=== PATIENT | female | born 1985 | race American Indian/Alaskan Native ===

== ENCOUNTER 2017-08-30 01:25 | Emergency (ER) | payer MEDICAID ==
[2017-08-30] MEDS ORDERED: ZOFRAN ODT PO ONE ×2 (04:35)
[2017-08-30 05:24] LABS: Basophils % (Auto) 0.3 % (0.0-1.8); Eosinophils % (Auto) 1.6 % (0.0-4.3); Hematocrit 40.3 % (30.3-42.9); Hemoglobin 13.2 gm/dl (10.1-14.3); Mean Corpuscular HGB Conc 33 % (30-34); Mean Corpuscular Hemoglobin 29 pg (28-32); Mean Corpuscular Volume 89 fl (79-97); Platelet Count 232 K/mm3 (140-440); Red Blood Count 4.55 M/mm3 (3.65-5.03); Red Cell Distribution Width 14.7 % (13.2-15.2); White Blood Count 6.8 K/mm3 (4.5-11.0)
[2017-08-30 05:36] LABS: Anion Gap 19 mmol/L; BUN/Creatinine Ratio 12; Blood Urea Nitrogen 7 mg/dL (7-17); Calcium 9.1 mg/dL (8.4-10.2); Carbon Dioxide 23 mmol/L (22-30); Chloride 99.4 mmol/L (98-107); Glucose 84 mg/dL (65-100); Potassium 4.4 mmol/L (3.6-5.0); Sodium 137 mmol/L (137-145)
[2017-08-30] MEDS ORDERED: ZOFRAN IV ONE (07:00)
[2017-08-30] MEDS ORDERED: ZOFRAN ONE (07:19)
[2017-08-30 08:01] LABS: Alanine Aminotransferase 12 units/L (7-56); Albumin 4.2 g/dL (3.9-5); Albumin/Globulin Ratio 1.6 %; Alkaline Phosphatase 54 units/L (35-129); Total Protein 6.8 g/dL (6.3-8.2)
[2017-08-30 08:05] LABS: Bilirubin,Direct < 0.2 mg/dL (0-0.2)
--- NOTE | 2017-08-30 08:50 | Ultrasound Report ---
ULTRASOUND OB LESS THAN 14 WEEKS FETUS ULTRASOUND OB TRANSVAGINAL HISTORY: Vomiting, pain. COMPARISON: None. TECHNIQUE: Transabdominal and transvaginal ultrasound with color doppler interrogation. FINDINGS: Uterus: 9.7 x 6.3 x 6.8 cm. No uterine fibroids are identified. Endometrium: An intrauterine is identified with heart rate measuring 153 beats per minute. [facility]-rump length measures 14.0 cm which correlates with a 7 week, 5 day . Right ovary: 3.9 x 1.9 x 3.0 cm. A 1.3 cm complex cyst is noted in the right ovary. Left ovary: 3.9 x 2.0 x 2.3 cm. No abnormality.. No pelvic fluid or mass is identified. Normal color doppler interrogation. IMPRESSION: Viable, single intrauterine dated at 7 weeks, 5 days. No acute abnormality is detected. 1.3 cm complex cyst in the right ovary.
[2017-08-30] MEDS ORDERED: NACL 0.9% 1000 ML 1,000 ML IV ONE (10:04)
[2017-08-30 12:15] VITALS: BP 104/60
--- NOTE | 2017-08-30 13:49 | Emergency Department Report ---
HPI - General Chief Complaint: Nausea/Vomiting/Diarrhea Time Seen by Provider: 08/30/17 10:03 - HPI HPI: The patient's 32-year-old EGA of 7 weeks, who presents for evaluation of nausea, vomiting, and abdominal pain. The patient reports constant severe nausea and multiple episodes of vomiting for the past week, exacerbated with eating or drinking, and associated with mild crampy epigastric abdominal pain also for the past week, worse with retching. The patient denies fever, chills, night sweats, diarrhea, blood in the stool, dark tarry stool, dysuria, hematuria , flank pain, genital discharge, vaginal bleeding, leg swelling, blurry vision, chest pain, dyspnea. ED Past Medical Hx - Past Medical History Previous Medical History?: Yes Hx Asthma: Yes - Surgical History Past Surgical History?: No - Social History Smoking Status: Never Smoker Substance Use Type: None - Medications Home Medications: Home Medications Medication Instructions Recorded Confirmed Last Taken Type Acetaminophen/Codeine [Tylenol 1 tab PO Q6H PRN #15 tab 11/28/13 Unknown Rx /Codeine # 3 tab] Methocarbamol [Robaxin TAB] 750 mg PO Q8H PRN #21 tablet 11/28/13 Unknown Rx Naproxen Sodium (Nf) [Anaprox DS 550 mg PO BID PRN #14 tablet 11/28/13 Unknown Rx TAB] Ondansetron [Zofran TAB] 4 mg PO Q8HR PRN #20 tablet 08/30/17 Unknown Rx Pnv No.95/Ferrous Fum/Folic AC 1 each PO QDAY #31 tablet 08/30/17 Unknown Rx [ Vitamin Tablet] ED Review of Systems ROS: Stated complaint: ABD PAIN W N/V Other details as noted in HPI Constitutional: denies: fever ENT: denies: throat or neck pain Respiratory: denies: cough, shortness of breath Cardiovascular: denies: chest pain Endocrine: denies unexplained weight loss or gain Gastrointestinal: reports abdominal pain, nausea Genitourinary: denies: dysuria Musculoskeletal: denies: leg swelling Skin: denies: rash Neurological: denies: headache Hematological/Lymphatic: denies: easy bleeding or easy bruising Psych: denies sadness or hopelessness Physical Exam - Physical Exam Vital Signs: Vital Signs 08/30/17 04:24 Temperature 98.1 F Pulse Rate 75 Respiratory 18 Rate Blood Pressure 121/57 O2 Sat by Pulse 98 Oximetry Physical Exam: General: well-nourished, well-developed, no acute distress Head: Normocephalic, atraumatic Eyes: normal sclera ENT: Mucous membranes are pale and dry Neck: No neck stiffness, no cervical adenopathy Respiratory: Breath sounds equal bilaterally, no wheezing, rales, or rhonchi Cardio: S1 and S2 present, no murmurs, rubs, gallops, capillary refill is delayed Abdomen: Normoactive bowel sounds, soft abdomen, epigastric tenderness, no rigidity, no guarding or rebound tenderness Chest WALL/Back: No tenderness to palpation of the chest wall, no CVA tenderness with percussion Musc: No pitting edema Skin: No rash Neuro: no facial drooping, normal speech Psych: Normal affect ED Course Vital Signs 08/30/17 04:24 Temperature 98.1 F Pulse Rate 75 Respiratory 18 Rate Blood Pressure 121/57 O2 Sat by Pulse 98 Oximetry ED Medical Decision Making - Lab Data Result diagrams: 08/30/17 05:00 08/30/17 05:00 - Medical Decision Making The patient was seen and examined by myself. The patient is placed on a electronic device monitor and continuous pulse ox. On initial evaluation, the patient was found to be in no distress. Evaluation orders are placed. IV access is established and the patient is given 1 L normal saline fluid bolus and Zofran for nausea. Lab results revealed elevated hCG, and otherwise were non- concerning including WBC, hemoglobin, hematocrit, electrolytes, renal function, and urinalysis. Also found with the pelvis reveals live intrauterine at 7 weeks with normal heart rate. The patient was reevaluated and reported that their symptoms were markedly improved. The patient is stable for discharge with outpatient follow-up. The patient is given follow-up and return instructions. The patient expressed understanding and agreed with the plan. The patient is discharged in stable condition. Critical care attestation.: If time is entered above; I have spent that time in minutes in the direct care of this critically ill patient, excluding procedure time. ED Disposition Clinical Impression: Nausea and vomiting in adult, Dehydration, Vomiting during Normal IUP (intrauterine ) on ultrasound Qualifiers: Trimester: first trimester Qualified Code(s): Z34.91 - Encounter for supervision of normal , unspecified, first trimester Disposition: DC-01 TO HOME OR SELFCARE Is pt being admited?: No Does the pt Need Aspirin: No Condition: Stable Instructions: Morning Sickness (ED), Acute Nausea and Vomiting (ED) Referrals: PRIMARY CARE, [Primary Care Provider] - 3-5 Days Time of Disposition: 11:23
== END 2017-08-30 12:18 | disposition home or self-care (01) ==
LOC: ED 01:25
DX: O21.9 Vomiting of pregnancy, unspecified (principal); O26.891 Other specified pregnancy related conditions, first trimester; E86.0 Dehydration; Z3A.01 Less than 8 weeks gestation of pregnancy
CPT/HCPCS: 36415; 76801; 76817; 80048; 80074; 84702; 85025; 96361; 96374; 99284; J2405; J7030; Q0162

== ENCOUNTER 2017-09-01 11:41 | Emergency (ER) | payer MEDICAID ==
[2017-09-01 15:17] VITALS: BP 117/61
--- NOTE | 2017-09-01 16:31 | Emergency Department Report ---
Chief Complaint: Abdominal Pain Stated Complaint: ABDOMINAL PAIN Time Seen by Provider: 09/01/17 16:14 - HPI History of Present Illness: brought to ft for what sounded like a med change when in room co severe abd pain new since fri eating chicken and strips very rude states I never told them that... no vag bleed or dc told pt we'd have to move her to main ed for eval vss nad ambulatory and taking po orders entered. - Exam Vital Signs: Vital Signs 09/01/17 15:11 Temperature 98.4 F Pulse Rate 100 H Respiratory 16 Rate Blood Pressure 117/61 O2 Sat by Pulse 97 Oximetry MSE screening note: Focused history and physical exam performed. Due to findings the following was ordered: ED Disposition for MSE Condition: Stable Instructions: Abdominal Pain (ED) Referrals: PRIMARY CARE [Primary Care Provider] - 3-5 Days
[2017-09-01 16:44] LABS: Basophils % (Auto) 0.4 % (0.0-1.8); Eosinophils % (Auto) 0.7 % (0.0-4.3); Hematocrit 37.3 % (30.3-42.9); Hemoglobin 12.5 gm/dl (10.1-14.3); Mean Corpuscular HGB Conc 33 % (30-34); Mean Corpuscular Hemoglobin 29 pg (28-32); Mean Corpuscular Volume 88 fl (79-97); Platelet Count 216 K/mm3 (140-440); Red Blood Count 4.26 M/mm3 (3.65-5.03); Red Cell Distribution Width 14.9 % (13.2-15.2); White Blood Count 8.2 K/mm3 (4.5-11.0)
[2017-09-01 17:00] LABS: Alanine Aminotransferase 12 units/L (7-56); Albumin 3.9 g/dL (3.9-5); Albumin/Globulin Ratio 1.3 %; Alkaline Phosphatase 50 units/L (35-129); Anion Gap 18 mmol/L; BUN/Creatinine Ratio 12; Blood Urea Nitrogen 7 mg/dL (7-17); Calcium 8.8 mg/dL (8.4-10.2); Carbon Dioxide 21 mmol/L (22-30); Chloride 100.9 mmol/L (98-107); Glucose 133 mg/dL (65-100); Potassium 3.6 mmol/L (3.6-5.0); Sodium 136 mmol/L (137-145); Total Protein 6.8 g/dL (6.3-8.2)
[2017-09-01 17:29] LABS: Amylase 36 units/L (27-131); Lipase 26 units/L (13-60)
--- NOTE | 2017-09-01 18:44 | Ultrasound Report ---
FINAL REPORT EXAM: US OB < = 14 WEEKS FETUS HISTORY: abdominal pain in TECHNIQUE: Obstetrical transvesical and endovaginal sonographic imaging Comparison: None FINDINGS: Imaging demonstrates uterus to measure 9.3 x 5.4 x 7.5 centimeters. Within the uterus, there is a gestational sac containing a pole. By crown-rump length of 1.76 centimeters, estimated gestational age is 8 weeks 2 day. A yolk sac is present. heart rate measures 169 beats per minute. Estimated due date by today's ultrasound is 04/11/2018. There is no free fluid identified. There is no bleed identified. Right ovary measures 3.9 x 2.3 x 2.2 centimeters with a complex 1 centimeter cyst. Left ovary measures 4.3 x 2.3 x 3.1 centimeters with a complex solid-appearing 1.9 centimeter lesion and multiple small follicles. Normal color flow. IMPRESSION: Single live intrauterine gestation at 8 weeks 2 days. heart rate measuring 169 beats per minute. Estimated due date is 04/11/2018. No bleed identified. Complex solid-appearing left ovarian mass presumably hemorrhagic cyst and a cystic complex right adnexal lesion. No free fluid.
--- NOTE | 2017-09-01 18:47 | Ultrasound Report ---
FINAL REPORT EXAM: US OB TRANSVAGINAL HISTORY: abdominal pain in TECHNIQUE: Obstetrical transvesical and endovaginal sonographic imaging Comparison: None FINDINGS: Imaging demonstrates uterus to measure 9.3 x 5.4 x 7.5 centimeters. Within the uterus, there is a gestational sac containing a pole. By crown-rump length of 1.76 centimeters, estimated gestational age is 8 weeks 2 day. A yolk sac is present. heart rate measures 169 beats per minute. Estimated due date by today's ultrasound is 04/11/2018. There is no free fluid identified. There is no bleed identified. Right ovary measures 3.9 x 2.3 x 2.2 centimeters with a complex 1 centimeter cyst. Left ovary measures 4.3 x 2.3 x 3.1 centimeters with a complex solid-appearing 1.9 centimeter lesion and multiple small follicles. Normal color flow. IMPRESSION: Single live intrauterine gestation at 8 weeks 2 days. heart rate measuring 169 beats per minute. Estimated due date is 04/11/2018. No bleed identified. Complex solid-appearing left ovarian mass presumably hemorrhagic cyst and a cystic complex right adnexal lesion. No free fluid.
== END 2017-09-02 01:10 | disposition left against medical advice (07) ==
LOC: ED 11:41
DX: R10.9 Unspecified abdominal pain (principal); Z53.21 Procedure and treatment not carried out due to patient leaving prior to being seen by health care provider
CPT/HCPCS: 36415; 76801; 76817; 80053; 82150; 83690; 84703; 85025

== ENCOUNTER 2017-09-09 12:48 | Emergency (ER) | payer MEDICAID | END 2017-09-09 13:00 | disposition left against medical advice (07) | LOC: ED 12:48 | DX: R10.9 Unspecified abdominal pain (principal); Z53.21 Procedure and treatment not carried out due to patient leaving prior to being seen by health care provider ==

== ENCOUNTER 2017-10-13 17:23 | Emergency (ER) | payer MEDICAID ==
[2017-10-13 19:00] VITALS: BP 114/63
[2017-10-13 20:13] LABS: Alanine Aminotransferase 8 units/L (7-56); Albumin 3.8 g/dL (3.9-5); BUN/Creatinine Ratio 16; Blood Urea Nitrogen 8 mg/dL (7-17); Calcium 9.4 mg/dL (8.4-10.2); Hemolysis Index 5
[2017-10-13 20:22] LABS: Bilirubin,Urine NEG (Negative); Blood,Urine NEG (Negative); Color,Urine Yellow (Yellow); Mucus,Urine 3+ /HPF; Nitrite,Urine NEG (Negative)
[2017-10-13 20:41] LABS: Basophils # (Auto) 0.1 K/mm3 (0.0-0.1); Basophils % (Auto) 1.8 % (0.0-1.8); Eosinophils # (Auto) 0.1 K/mm3 (0.0-0.4); Eosinophils % (Auto) 1.2 % (0.0-4.3); Hematocrit 40.7 % (30.3-42.9); Hemoglobin 13.6 gm/dl (10.1-14.3); Lymphocytes # (Auto) 1.7 K/mm3 (1.2-5.4); Lymphocytes % (Auto) 24.6 % (13.4-35.0); Mean Corpuscular HGB Conc 34 % (30-34); Mean Corpuscular Hemoglobin 29 pg (28-32); Mean Corpuscular Volume 88 fl (79-97); Monocytes # (Auto) 0.4 K/mm3 (0.0-0.8); Monocytes % (Auto) 5.4 % (0.0-7.3); Platelet Count 247 K/mm3 (140-440); Red Blood Count 4.63 M/mm3 (3.65-5.03); Red Cell Distribution Width 15.1 % (13.2-15.2)
--- NOTE | 2017-10-13 20:59 | Ultrasound Report ---
FINAL REPORT PROCEDURE: US ABDOMEN COMPLETE TECHNIQUE: Real-time sonography in multiple planes of the abdomen was performed with image documentation. CPT 43282 HISTORY: abd cramping COMPARISON: No prior studies are available for comparison. FINDINGS: Examination of the right upper quadrant shows normal appearance the gallbladder. No evidence of gallstones or gallbladder wall thickening. Common bile duct is normal caliber measuring 3.7 millimeters. The intrahepatic ducts are not distended. Liver echogenicity appears normal. No masses are identified. There is no ascites. Visualized portions of the pancreas are unremarkable. Right and left kidney showed no abnormalities. The right kidney measures 10.1 centimeters greatest length the left kidney 11.7 centimeters greatest length. The spleen is normal size measuring 8.9 centimeter and appears normal. Proximal abdominal aorta shows no evidence of aneurysm. The mid and distal abdominal aorta were not studied. IMPRESSION: Negative exam..
--- NOTE | 2017-10-13 21:07 | Ultrasound Report ---
FINAL REPORT PROCEDURE: US OB > = 14 WEEKS FETUS TECHNIQUE: Real-time limited sonographic examination was performed for evaluation of well-being for each fetus with image documentation (1 or more fetuses). CPT 45835 HISTORY: abd cramping COMPARISON: Prior Ob ultrasound 09/01/2017 FINDINGS: There is a single living intrauterine gestation currently visualized in the breech presentation. Amount of amniotic fluid appears normal. Placenta is located posterior grade 0. No evidence of placenta abruption or placenta previa. heart rate of 151 beats per minute is detected. Cervix length 3.1 centimeter. Detailed exam of the anatomy was not performed. No gross abnormality is seen. Maternal ovaries were not visualized. MEASUREMENTS BPD: 2.8 centimeter equal 14 week 6 days. HC: 9.7 centimeter equal. 14 weeks 3 days AC: 8.4 centimeter equal 14 week 5 day. FL: 1.6 centimeter equal 14 week 5 day. Mean Gestational Age (composite criteria): 14 week 4 days. Estimated Weight: Not calculated Interval growth: Appropriate . Estimated Due Date (earliest scan): 04/11/2018. By today's study 04/09/2018. There has been appropriate interval growth.. IMPRESSION: Single living intrauterine gestation visualized currently breech presentation. Normal amount of amniotic fluid is visualized. No evidence of placenta previa or abruption. There has been appropriate interval growth. Estimated date confinement remains 04/11/2018 +/-0.5 weeks. No acute abnormalities are identified. Consider follow-up exam at 18-20 weeks to evaluate anatomy.
== END 2017-10-14 01:50 | disposition left against medical advice (07) ==
LOC: ED 17:23
DX: R11.2 Nausea with vomiting, unspecified (principal); R10.9 Unspecified abdominal pain; Z53.21 Procedure and treatment not carried out due to patient leaving prior to being seen by health care provider
CPT/HCPCS: 36415; 76700; 76805; 80053; 81001; 83690; 84703; 85025